=== PATIENT | female | born 1945 | race Caucasian/White ===

== ENCOUNTER 2021-09-24 11:28 | Inpatient (IN) | payer OTHER ==
[~2021-09-24] VITALS: Ht 165.1 cm; Wt 74.4 kg
--- NOTE | ~2021-09-24 | EMS ---
[facility] [address] [place] [address] EMS Patient Care Report Name: RAJAN GRANT Room #: REG RICKY Mcfarland#: [id number] Admission: 09/24/21 Attend Phys: Discharge: Date of : 41 Report #: [id number] THIS REPORT FOR: //name// Report Transmitted: 09/24/2021 13:27 EMS Care Summary [place], [place]/[facility] Incident [id number] @ 09/24/2021 10:53 Incident Location [address] [place] [address] [address] [place] [address] Patient RAJAN GRANT Male, 76 Years 1945 Patient Address Patient History Hysterectomy, Patient Allergies Penicillin allergy, Patient Medications None Reported, Chief Complaint SYNCOPE Disposition Transported No Lights/[place] Dispatch Reason Unconscious/Fainting Transported To [facility] Narrative RESPONDED TO UNCONSCIOUS AT APARTMENT. UPON ARRIVAL PT FOUND LAYING ON FLOOR IN LIVING ROOM ALERT AND ORIENTED. FAMILY REPORT PT WAS WALKING TO THE BATHROOM WHEN SHE APPEARED TO STUMBLE AND FAMILY LOWERED HER TO THE GROUND WHERE SHE PASSED OUT. PT DOES NOT REPORT ANY INJURIES AND SAYS SHE HAS BEEN DEALING WITH SOME COLD SYMPTOMS. PT DID NOT WANT TO BE TRANSPORTED INITIALLY BUT WHEN SHE [facility] [address] [place] [address] EMS Patient Care Report Name: RAJAN GRANT Room #: ALVA Mcfarland#: [id number] Admission: 09/24/21 Attend Phys: Discharge: Date of : 41 Report #: [id number] WAS ASSISTED TO STAND UP SHE PASSED OUT IN FRONT OF EMS AND WAS LOWERED TO GROUND AGAIN. PT CAME TO AFTER APPROX 20 SECONDS AND REPORTS DIZZINESS. 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 PT VITALS, 3 LEAD, IV AND 12 LEAD OBTAINED. PT GIVEN .5 MG ATROPINE WITH IMPROVEMENT. IV BOLUS GIVEN TO RAISE B/P. PT TRANSPORTED TO [facility] AND TEAM LIFTED TO BED WITH HANDRAILS UP. REPORT GIVEN TO NURSE. Initial Vitals @11:11P: 48,SpO2: 90, @11:14P: 49,SpO2: 90, @11:13P: 49,SpO2: 96, @11:10P: 49,R: 18,BP: 54/34,SpO2: 94, @11:02P: 64,BP: 79/40, @11:21P: 90,BP: 102/46,GCS: 15,CO: 1,SpO2: 93, @11:17BP: 85/50, @11:17P: 80,SpO2: 91,WA Suspected: false @11:13P: 48,Pain: 0/10,SpO2: 94,WA Suspected: false @11:02P: 60,R: 18,BP: 76/44,Glucose: 140,CO: 1,SpO2: 93, Assessments @11:02MENTAL:Event Oriented,Place Oriented,Person Oriented,Time Oriented,SKIN:Pale,HEENT:Head/Face: No Abnormalities,Neck/Airway: No Abnormalities,LUNG SOUNDS:General: No Abnormalities,Left Upper: No Abnormalities,Right Upper: No Abnormalities,Left Lower: No Abnormalities,Right Lower: No Abnormalities,ABDOMEN:General: No Abnormalities,Left Upper: No Abnormalities,Right Upper: No Abnormalities,Left Lower: No Abnormalities,Right Lower: No Abnormalities,PELVIS//GI:Incontinence,EXTREMITIES:Left Arm: Weakness,Right Leg: Weakness,Left Leg: Weakness,Right Arm: Weakness,PULSE:Radial: 1+ Thready,NEURO:Other,@11:10MENTAL:Person Oriented,Time Oriented,Place Oriented,Event Oriented,SKIN:HEENT:Head/Face: No Abnormalities,Neck/Airway: No Abnormalities,LUNG SOUNDS:General: No Abnormalities,Left Upper: No Abnormalities,Right Upper: No Abnormalities,Left Lower: No Abnormalities,Right Lower: No Abnormalities,ABDOMEN:General: No Abnormalities,Left Upper: No Abnormalities,Right Upper: No Abnormalities,Left Lower: No Abnormalities,Right Lower: No Abnormalities,PELVIS//GI:Incontinence,EXTREMITIES:Left Arm: Weakness,Right Arm: Weakness,Left Leg: Weakness,Right Leg: Weakness,PULSE:Radial: 2+ Normal,NEURO: Impression Syncope / Fainting Procedures @11:13 Atropine - 0.5 Milligrams (mg) - Intravenous (IV) Response: Improved @11:11 IV Therapy - Saline Lock 5cc (20 ga) Site: Antecubital-Right Response: UnchangedSucceeded [facility] [address] [place] [address] EMS Patient Care Report Name: RAJAN GRANT Room #: REG RICKY Mcfarland#: [id number] Admission: 09/24/21 Attend Phys: Discharge: Date of : 41 Report #: [id number] @11:11 3-Lead ECG Response: UnchangedSucceeded @11:02 ALS Assessment Response: UnchangedSucceeded @11:15 IV Bolus - Normal Saline (.9% NaCl) 300cc (20 ga) Site: Antecubital-Right Response: ImprovedSucceeded @11:13 12-Lead ECG Response: UnchangedSucceeded @11:17 12-Lead ECG Response: UnchangedSucceeded Timeline 10:51,Call Received 10:51,Dispatch Notified 10:53,Dispatched 10:54,En Route 11:00,On Scene 11:02,At Patient 11:02,BP: 76/44 M,PULSE: 60,RR: 18 R,SPO2: 93 Ox,ETCO2: ,B,PAIN: ,GCS: , 11:02,BP: 79/40 M,PULSE: 64,RR: R,SPO2: Ox,ETCO2: ,BG: ,PAIN: ,GCS: , 11:02,ALS Assessment,Response: UnchangedSucceeded, 11:10,BP: 54/34 M,PULSE: 49,RR: 18 R,SPO2: 94 Ox,ETCO2: ,BG: ,PAIN: ,GCS: , 11:11,IV Therapy - Saline Lock 5cc 20 ga Site: Antecubital-Right,Response: UnchangedSucceeded, 11:11,BP: / M,PULSE: 48,RR: R,SPO2: 90 Ox,ETCO2: ,BG: ,PAIN: ,GCS: , 11:11,3-Lead ECG,Response: UnchangedSucceeded, 11:13,BP: / M,PULSE: 49,RR: R,SPO2: 96 Ox,ETCO2: ,BG: ,PAIN: ,GCS: , 11:13,12-Lead ECG,Response: UnchangedSucceeded, 11:13,BP: / M,PULSE: 48,RR: R,SPO2: 94 Ox,ETCO2: ,BG: ,PAIN: 0,GCS: , 11:13,Atropine - 0.5 Milligrams (mg) - Intravenous (IV),Response: Improved 11:14,BP: / M,PULSE: 49,RR: R,SPO2: 90 Ox,ETCO2: ,BG: ,PAIN: ,GCS: , 11:15,IV Bolus - Normal Saline (.9% NaCl) 300cc 20 ga Site: Antecubital-Right,Response: ImprovedSucceeded, 11:17,12-Lead ECG,Response: UnchangedSucceeded, 11:17,BP: / M,PULSE: 80,RR: R,SPO2: 91 Ox,ETCO2: ,BG: ,PAIN: ,GCS: , 11:17,BP: 85/50 M,PULSE: ,RR: R,SPO2: Ox,ETCO2: ,BG: ,PAIN: ,GCS: , 11:18,Depart Scene 11:21,BP: 102/46 M,PULSE: 90,RR: R,SPO2: 93 Ox,ETCO2: ,BG: ,PAIN: ,GCS: 15, 11:24,At Destination 11:38,Call Closed Disclaimer v1.1 Copyright 2020 [employer] This EMS Care Summary contains data elements from the applicable legal record (which may be displayed differently). It is designed to provide pertinent information for the following purposes: continuity of care, clinical quality, and state data reporting. The complete legal record is available to ED staff and administrators of the receiving hospital in [employer]'s Patient Tracker. All data is provided "as is."
[2021-09-24 11:52] LABS: ABSOLUTE NEUTROPHILS 2.1 thou/uL (1.4-8.2); BASOPHILS 0.4 % (0.0-2.0); EOSINOPHILS 0.1 % (0.0-3.0); HEMATOCRIT 34.8 % (37.0-47.0); HEMOGLOBIN 11.5 gm/dL (12.0-15.0); LYMPHOCYTES 20.4 % (24.0-44.0); MCH 30.4 pg (26.0-34.0); MCHC 33.1 g/dL (28.0-37.0); MCV 91.9 fL (80.0-100.0); MONOCYTES 19.6 % (1.0-8.0); PLATELET COUNT 103 thou/uL (150-400); POLYS 59.5 % (36.0-66.0); RBC 3.79 mil/uL (4.20-5.00); RDW 13.6 % (10.5-14.5); WBC 3.5 thou/uL (4.0-11.0)
[2021-09-24 12:05] LABS: CREATININE 0.8 mg/dL (0.6-1.0); POTASSIUM 3.8 mmol/L (3.5-5.1)
[2021-09-24 13:08] VITALS: BP 125/61
[2021-09-24 14:52] LABS: URINE BILIRUBIN NEGATIVE (Negative); URINE BLOOD NEGATIVE (Negative); URINE CLARITY CLEAR; URINE COLOR YELLOW; URINE GLUCOSE-RANDOM* NEGATIVE (Negative); URINE KETONES NEGATIVE (Negative); URINE LEUKOCYTES-REFLEX NEGATIVE (Negative); URINE NITRITE-REFLEX NEGATIVE (Negative); URINE PROTEIN (DIPSTICK) NEGATIVE (Negative); URINE UROBILINOGEN 0.2 E.U./dl (0.2-1.0)
[2021-09-24] MEDS ORDERED: CALCIUM500 MG PO (17:03)
[2021-09-24] MEDS ORDERED: OSTEO BI-FLEX1 EAC1 PO (17:05)
[2021-09-24] MEDS ORDERED: VITAMIN C100 MG PO (17:08)
[2021-09-25 05:19] LABS: HEMOGLOBIN 11.1 gm/dL (12.0-15.0); MCH 30.2 pg (26.0-34.0); MCHC 32.6 g/dL (28.0-37.0); MCV 92.4 fL (80.0-100.0); RBC 3.68 mil/uL (4.20-5.00); RDW 14.1 % (10.5-14.5); WBC 3.5 thou/uL (4.0-11.0)
[2021-09-25 05:34] LABS: CREATININE 0.6 mg/dL (0.6-1.0); POTASSIUM 3.7 mmol/L (3.5-5.1)
[2021-09-25 06:05] VITALS: BP 124/51
--- NOTE | 2021-09-25 11:17 | NUR ---
ADI-DAUGHTER [phone] SARAH-SISTER [phone]
--- NOTE | 2021-09-25 12:26 | EKG ---
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
[2021-09-25 13:07] VITALS: BP 160/65
[2021-09-25 13:22] VITALS: BP 160/65
[2021-09-25 14:57] VITALS: BP 150/69
--- NOTE | 2021-09-26 07:25 | NUR ---
ORDERS FOR EVAL AND TREAT WITH PHYSICAL THERAPY HOWEVER Pt DISCHARGED FROM THE E.R. PRIOR TO BEING SEEN
== END 2021-09-25 14:57 | disposition home or self-care (01) | DRG 312 ==
LOC: ER 11:28 → EROBS 13:04
PROVIDERS: Emergency Medicine; ADMIT Hospitalist; ATTEND Hospitalist
DX: I95.1 Orthostatic hypotension (principal); U07.1 COVID-19; Z88.0 Allergy status to penicillin; Z90.710 Acquired absence of both cervix and uterus; R00.1 Bradycardia, unspecified